=== PATIENT | female | born 1980 | race Caucasian/White ===

== ENCOUNTER 2016-06-06 12:16 | Emergency (ER) | payer OTHER ==
[~2016-06-06] VITALS: Ht 162.6 cm; Wt 72.2 kg
[2016-06-06 12:20] VITALS: TEMP 36.7; Ht 162.6 cm; Wt 72.2 kg
[2016-06-06] MEDS ORDERED: SODIUM CHLORIDE 0.9% 1000ML 500 ML IV STA (13:38)
[2016-06-06 13:48] LABS: HEMATOCRIT 36.8 % (37-47); MEAN CELL VOLUME 86.4 fL (80-100); MEAN CORPUSCULAR HEMOGLOBIN 30.3 pg (25-34); MEAN CORPUSCULAR HGB CONC 35.1 g/dl (32-36); MEAN PLATELET VOLUME 10.6 fL (7.4-10.4); PLATELET COUNT 241 K/uL (130-400); RED BLOOD COUNT 4.26 M/uL (4.2-5.4); WHITE BLOOD COUNT 14.02 K/uL (4.8-10.8)
[2016-06-06 13:56] LABS: BUN/CREATININE RATIO 12.3 (10-20); CALCIUM 9.5 mg/dl (8.5-10.1); CREATININE 0.78 mg/dl (0.60-1.20)
[2016-06-06 14:07] LABS: ALB/GLOB RATIO 0.7 (0.9-2); THYROID STIMULATING HORMONE 0.78 uIu/ml (0.300-4.500)
[2016-06-06 14:15] LABS: URINE APPEARANCE TURBID (CLEAR); URINE BILIRUBIN NEG (NEG); URINE COLOR YELLOW; URINE EPITHELIAL CELL AUTO >30 /lpf (0-5); URINE NITRITE NEG (NEG); URINE SPECIFIC GRAVITY 1.012 (1.000-1.030); UROBILINOGEN NEG (NEG); ZZUR CULT IF INDIC CLEAN CATCH YES
[2016-06-06 14:19] LABS: MANUAL MICROSCOPIC REQUIRED? NO; REVIEW REQ? NO
--- NOTE | 2016-06-06 14:27 | EMERGENCY ROOM VISIT NOTE ---
History Report prepared by Demetrius: Chin Boswell Under the Supervision of: Dr. Armin Rick M.D. First contact with patient: 13:33 Chief Complaint: FLANK PAIN Stated Complaint: ABD PAIN, 18 WEEKS History of Present Illness The patient is a 35 year old female who presents to the Emergency Room with complaints of intermittent right flank pain. The pain is also felt in the right abdomen. The patient describes the pain as a stinging sensation. The patient does not currently have any pain, which was rated 7/10 at its worst. She has not taken anything for pain. The patient also complains of nausea. She denies any fevers, cough, congestion, urinary symptoms, or vaginal bleeding. The patient has not had any recent falls or trauma. The patient is 18 weeks with twins. She has already had two subchorionic bleeds, one at 6 weeks and one at 13 weeks. The patient has one child. She had one ectopic and one miscarriage. The patient is for the 4th time. P: 1. This is the first time the patient is with twins. The patient notes that she has a yeast infection that is being treated with a topical cream. The patient is visiting [place] from [place]. Source of History: patient Position: back (right flank) Symptom Intensity: 7/10 Quality: other (stinging) Timing: intermittent Associated Symptoms: + abdominal pain, + nausea, No cough, No fevers, No urinary symptoms Review of Systems See HPI for pertinent positives & negatives. A total of 10 systems reviewed and were otherwise negative. Past Medical & Surgical Medical Problems: (1) Ectopic (2) Miscarriage Family History No pertinent family history Social History Smoking Status: Never Smoker Housing Status: lives with family Current/Historical Medications Scheduled Multivit/Min/Iron/Fol Ac/Pren ( Vitamin), 1 TAB PO DAILY Allergies Coded Allergies: No Known Allergies (Unverified , 06/06/16) Physical Exam Vital Signs Date Time Temp Pulse Resp B/P Pulse Ox O2 Delivery O2 Flow Rate FiO2 06/06/16 15:30 140/82 06/06/16 14:51 109 20 140/82 97 Room Air 06/06/16 12:20 36.7 94 18 149/88 99 Room Air Physical Exam GENERAL: Patient is in no acute distress. HEENT: No acute trauma, normocephalic atraumatic, mucous membranes moist, no nasal congestion, no scleral icterus. NECK: No stridor, no adenopathy, no meningismus, trachea is midline. LUNGS: Clear to auscultation bilaterally, no wheeze, no rhonchi, breath sounds equal. HEART: Without murmurs gallops or rubs, regular rate and rhythm. ABDOMEN: Gravid uterus to above the umbilicus, mildly tender to the right mid lateral abdomen, no peritonitis, no hernia, abdomen is soft. BACK: No flank discomfort to percussion. EXTREMITIES: No cyanosis or edema, full range of motion of all the joints without pain or difficulty, no signs for acute trauma. NEUROLOGIC: Oriented x 3, no acute motor or sensory deficits, no focal weakness. SKIN: No rash, no jaundice, no diaphoresis. Medical Decision & Procedures ER Provider Diagnostic Interpretation: US results as stated below per my review and radiologist interpretation: Limited ultrasound LIMITED (US) CLINICAL HISTORY: posse subchordal hem or ovarian cyst--twins at 18 weeks--r side pain pain TECHNIQUE: Real-time ultrasound COMPARISON STUDY: None FINDINGS: 20 intrauterine . Maternal cervix is closed with a maximum length of 3.6 cm. Baby A is cephalic in presentation. 148 bpm cardiac activity. Posterior placenta. Baby B is cephalic in presentation. 46 bpm. Placenta is anterior. 2. Small right ovarian cyst measuring up to 1.5 cm. Normal left ovary. IMPRESSION: 1. Twin viable intrauterine . Estimated gestational age is 17 weeks 5 days. cardiac cardiac activity is confirmed . 2. Small right ovarian cyst measuring . 1.5 cm Electronically signed by: Drake Hernandez M.D. 06/06/2016 2:52 PM Dictated Date/Time: 06/06/2016 2:50 PM RENAL ULTRASOUND HISTORY: Flank pain FLANK PAIN COMPARISON: None. FINDINGS: Right kidney: Maximum dimension 11.6 cm. No evidence for hydronephrosis Normal corticomedullary differentiation and cortical thickness. Left kidney: Maximum dimension 11.0 cm. No evidence for hydronephrosis. Normal corticomedullary differentiation and cortical thickness. Bladder: No bladder wall thickening. The bilateral ureteral jets were identified. IMPRESSION: Normal renal ultrasound. Electronically signed by: Drake Hernandez M.D. 06/06/2016 2:54 PM Dictated Date/Time: 06/06/2016 2:54 PM Laboratory Results 06/06/16 12:55 06/06/16 12:55 Test 06/06/16 12:51 06/06/16 12:55 Urine Color YELLOW Urine Appearance TURBID (CLEAR) Urine pH 8.0 (4.5-7.5) Urine Specific [place] 1.012 (1.000-1.030) Urine Protein NEG (NEG) Urine Glucose (UA) NEG (NEG) Urine Ketones NEG (NEG) Urine Occult Blood NEG (NEG) Urine Nitrite NEG (NEG) Urine Bilirubin NEG (NEG) Urine Urobilinogen NEG (NEG) Urine Leukocyte Esterase MODERATE (NEG) Urine WBC (Auto) 5-10 /hpf (0-5) Urine RBC (Auto) 0-4 /hpf (0-4) Urine Hyaline Casts (Auto) 1-5 /lpf (0-5) Urine Epithelial Cells (Auto) >30 /lpf (0-5) Urine Bacteria (Auto) 1+ (NEG) Red Blood Count 4.26 M/uL (4.2-5.4) Mean Corpuscular Volume 86.4 fL (80-100) Mean Corpuscular Hemoglobin 30.3 pg (25-34) Mean Corpuscular Hemoglobin Concent 35.1 g/dl (32-36) RDW Standard Deviation 41.7 fL (36.4-46.3) RDW Coefficient of Variation 13.2 % (11.5-14.5) Mean Platelet Volume 10.6 fL (7.4-10.4) Anion Gap 12.0 mmol/L (3-11) Est Creatinine Clear Calc Drug Dose 97.2 ml/min Estimated GFR () 113.4 Estimated GFR (Non- 97.8 BUN/Creatinine Ratio 12.3 (10-20) Calcium Level 9.5 mg/dl (8.5-10.1) Total Bilirubin 0.8 mg/dl (0.2-1) Aspartate Amino Transf (AST/SGOT) 15 U/L (15-37) Alanine Aminotransferase (ALT/SGPT) 18 U/L (12-78) Alkaline Phosphatase 72 U/L (45-117) Total Protein 7.4 gm/dl (6.4-8.2) Albumin 3.1 gm/dl (3.4-5.0) Globulin 4.3 gm/dl (2.5-4.0) Albumin/Globulin Ratio 0.7 (0.9-2) Thyroid Stimulating Hormone (TSH) 0.780 uIu/ml (0.300-4.500) Free Thyroxine 1.03 ng/dl (0.80-1.60) Laboratory results reviewed by me. Medications Administered Medications (Trade) Dose Ordered Sig/Ba Route Start Time Stop Time Status Last Admin Dose Admin Sodium Chloride (Nss 1000ml) 500 ml @ 999 mls/hr Q31M STAT IV 06/06/16 13:38 06/06/16 14:08 DC 06/06/16 14:53 999 MLS/HR ED Course 1335: The patient was evaluated in room C4. A complete history and physical exam was performed. 1338: NSS 500 ml @ 999 mls/hr. 1515: Reassessed the patient. Discussed the findings with her. She verbalized understanding and agreement of the treatment plan. The patient is ready for discharge. Medical Decision Differential diagnosis includes renal colic, UTI, ovarian cyst, subchorionic hemorrhage, renal failure, musculoskeletal pain, hernia, uterine cramping. There is a mild leukocytosis which is likely consistent with her . No concerning anemia. No significant electrolyte abnormally, kidney failure or hepatitis. The patient appears to be in a euthyroid state. Urinalysis shows contamination, no infection. Renal ultrasound showed no hydronephrosis. Pelvic ultrasound showed a small right ovarian cyst, her pregnancies were healthy, no evidence for bleeding within the uterus. The patient now has no pain. Her pain may have been from her position, her uterus lying on her right ureter may have been causing her some renal colicky discomfort. Certainly, the right ovarian cyst may be possibly responsible for her discomfort as well. As she is pain-free now and doing well, she is being discharged. She will follow with her OB doctor at home, hydration, rest were encouraged. If worsening, she can return. Impression Primary Impression: Right flank pain Additional Impressions: Right ovarian cyst Scribe Attestation The scribe's documentation has been prepared under my direction and personally reviewed by me in its entirety. I confirm that the note above accurately reflects all work, treatment, procedures, and medical decision making performed by me. Departure Information Dispostion Home / Self-Care Referrals No Doctor, Assigned (PCP) Forms HOME CARE DOCUMENTATION FORM, IMPORTANT VISIT INFORMATION Patient Instructions My [facility] Additional Instructions tylenol for pain see your doctor when you return home small cyst noted on your right ovary today lab testing was ok kidney ultrasound was ok return if worsening Problem Qualifiers
[2016-06-06] MEDS ORDERED: PRENTAB26 PO (14:44)
[2016-06-06 14:51] VITALS: PULSE 109; O2SAT 97
--- NOTE | 2016-06-06 14:54 | DIAGNOSTIC IMAGING REPORT ---
Limited ultrasound LIMITED (US) CLINICAL HISTORY: posse subchordal hem or ovarian cyst--twins at 18 weeks--r side pain pain TECHNIQUE: Real-time ultrasound COMPARISON STUDY: None FINDINGS: 20 intrauterine . Maternal cervix is closed with a maximum length of 3.6 cm. Baby A is cephalic in presentation. 148 bpm cardiac activity. Posterior placenta. Baby B is cephalic in presentation. 46 bpm. Placenta is anterior. 2. Small right ovarian cyst measuring up to 1.5 cm. Normal left ovary. IMPRESSION: 1. Twin viable intrauterine . Estimated gestational age is 17 weeks 5 days. cardiac cardiac activity is confirmed . 2. Small right ovarian cyst measuring . 1.5 cm Electronically signed by: Drake Hernandez M.D. 06/06/2016 2:52 PM Dictated Date/Time: 06/06/2016 2:50 PM
--- NOTE | 2016-06-06 14:56 | DIAGNOSTIC IMAGING REPORT ---
RENAL ULTRASOUND HISTORY: Flank pain FLANK PAIN COMPARISON: None. FINDINGS: Right kidney: Maximum dimension 11.6 cm. No evidence for hydronephrosis Normal corticomedullary differentiation and cortical thickness. Left kidney: Maximum dimension 11.0 cm. No evidence for hydronephrosis. Normal corticomedullary differentiation and cortical thickness. Bladder: No bladder wall thickening. The bilateral ureteral jets were identified. IMPRESSION: Normal renal ultrasound. Electronically signed by: Drake Hernandez M.D. 06/06/2016 2:54 PM Dictated Date/Time: 06/06/2016 2:54 PM
[2016-06-06 15:30] VITALS: BP 140/82
--- NOTE | 2016-06-08 17:54 | Pharmacy Progress Note ---
ED Pharmacist Culture FollowUp Date of Service: Jun 08, 2016. Very low CFU/mL of Gardnerella growing from the patient's urine culture. Patient denied urinary symptoms. Urinalysis suggestive of contamination (>30 epithelial cells). Patient has follow-up with OB at home. No intervention required. Case discussed with Dr. Rick.
== END 2016-06-06 15:34 | disposition home or self-care (01) ==
LOC: MERGE 12:17 → C.EDB 12:17 → C.EDC 15:34
DX: O26.892 Other specified pregnancy related conditions, second trimester (principal); R10.9 Unspecified abdominal pain; O09.522 Supervision of elderly multigravida, second trimester; O34.82 Maternal care for other abnormalities of pelvic organs, second trimester; O30.002 Twin pregnancy, unspecified number of placenta and unspecified number of amniotic sacs, second trimester; Z3A.18 18 weeks gestation of pregnancy